=== PATIENT | female | born 1995 | race African-American/Black ===

== ENCOUNTER 2018-08-23 20:26 | Observation (INO) | payer BC ==
[2018-08-23 20:43] VITALS: BMI 25.3
--- NOTE | 2018-08-23 20:51 | PDOC ---
History of Present Illness - General Chief Complaint: Shortness of Breath Stated Complaint: Shortness of Breath Time Seen by Provider: 08/23/18 20:51 History Source: Patient Exam Limitations: No Limitations - History of Present Illness Initial Comments: 08/23/18 21:06 23 year old female with no PMH 5 months A0 presented to ED for shortness of breath x2.5 hours. She stated her SOB is worse with lying flat, and associated with palpitations and intermittent left sided chest pain. Pt stated all of her symptoms have resolved except she still feels slightly short of breath. Allergies: NKDA Past History - Past Medical History Allergies/Adverse Reactions: Allergies Allergy/AdvReac Type Severity Reaction Status Date / Time No Known Allergies Allergy Verified 08/23/18 20:41 Home Medications: Ambulatory Orders Pnv No.95/Ferrous Fum/Folic AC [ Vitamin Tablet] 1 each PO DAILY Asthma: No Cancer: No CVA: No COPD: No CHF: No - Surgical History Appendectomy: No Cardiac Surgery: No Gastric Stapling: No GI Surgery: No Lung Surgery: No - Suicide/Smoking/Psychosocial Hx Smoking History: Never smoked Have you smoked in the past 12 months: No Information on smoking cessation initiated: No Hx Alcohol Use: No Drug/Substance Use Hx: No Review of Systems - Review of Systems Able to Perform ROS?: Yes Comments:: 08/23/18 21:07 General: denied fever, chills, night sweats, generalized weakness. HEENT: denied sore throat, rhinorrhea, ear pain. Heart: admitted to palpitations, chest pain. denied syncope, diaphoresis. Respiratory: admitted to shortness of breath. denied cough, sputum production, hemoptysis. Abdomen: denied abdominal pain, nausea, vomiting, diarrhea, constipation, blood in stool. : denied dysuria, increased urinary frequency, hematuria, urinary incontinence , flank pain. Back: denied back pain. Musculoskeletal: denied joint pain, muscle pain, joint swelling. Neurological: denied headache, dizziness, numbness, tingling, weakness. Skin: denied rash, laceration, abrasion. *Physical Exam - Vital Signs Last Vital Signs Temp Pulse Resp BP Pulse Ox 98.3 F 94 H 20 119/62 100 08/23/18 20:42 08/23/18 20:42 08/23/18 20:42 08/23/18 20:42 08/23/18 20:42 - Physical Exam Comments: 08/23/18 21:08 Constitutional: Well-nourished, Well-developed, appearing stated age. HEENT: head is normocephalic, atraumatic. EOMI. PERRLA. Neck: supple. Full ROM. Heart: regular rhythm. no murmurs, rubs or gallops. Lungs: clear to auscultation bilaterally. no crackles, rhonchi or wheezing. no stridor. Abdomen: gravid. soft, nontender. normal bowel sounds. no rebound, guarding, masses. Extremities: Peripheral pulses intact. No lower extremity edema. Neurological: CN 2-12 grossly intact. Moves all four extremities. Psych: awake, alert, oriented x3. Follows commands. Answers questions appropriately. Moderate Sedation - Procedure Monitoring Vital Signs: Procedure Monitoring Vital Signs Temperature 98.3 F 08/23/18 20:42 Pulse Rate 94 H 08/23/18 20:42 Respiratory Rate 20 08/23/18 20:42 Blood Pressure 119/62 08/23/18 20:42 O2 Sat by Pulse Oximetry (%) 100 08/23/18 20:42 ED Treatment Course - LABORATORY CBC & Chemistry Diagram: 08/24/18 06:05 08/24/18 06:05 Medical Decision Making - Medical Decision Making 08/23/18 21:08 23 year old female with no PMH 5 months presented to ED for shortness of breath associated with palpitations, chest pain. Initial Vital Signs Temp Pulse Resp BP Pulse Ox 98.3 F 94 H 20 119/62 100 08/23/18 20:42 08/23/18 20:42 08/23/18 20:42 08/23/18 20:42 08/23/18 20:42 Afebrile. Borderline tachycardia. No tachypnea. Normal blood pressure for . No hypoxia on room air. I discussed the increased risk of PE in , and the need for CTA to rule out PE. Pt stated she does not want to do any test involving radiation. Pt informed of risk of with PE, pt stated she understood. o Labs ordered: CBC, CMP, troponin, BNP, Mg, Phos, TSH c Imaging ordered: none g Medications ordered: none EKG performed at 2035: rate 83, regular rhythm, normal axis, normal intervals, nonspecific ST changes. 08/23/18 22:46 CBC WBC 11.3 K/mm3 (4.0-10.0) H 08/23/18 21:27 RBC 4.00 M/mm3 (3.60-5.2) 08/23/18 21:27 Hgb 12.1 GM/dL (10.7-15.3) 08/23/18 21: Hct 34.9 % (32.4-45.2) 08/23/18 21: MCV 87.3 fl (80-96) 08/23/18 21: MCH 30.2 pg (25.7-33.7) 08/23/18: MCHC 34.6 g/dl (32.0-36.0) 08/23/18 21: RDW 14.4 % (11.6-15.6) 08/23/18 21: Plt Count 178 K/MM3 (134-434) 08/23/18 21: MPV 10.8 fl (7.5-11.1) 08/23/18 21: Absolute Neuts (auto) 8.2 K/mm3 (1.5-8.0) H 08/23/18 21: Neutrophils % 72.7 % (42.8-82.8) 08/23/18 21: Lymphocytes % 17.6 % (8-40) 08/23/18 21: Monocytes % 8.2 % (3.8-10.2) 08/23/18: Eosinophils % 1.0 % (0-4.5) 08/23/18 21: Basophils % 0.5 % (0-2.0) 08/23/18 21: Nucleated RBC % 0 % (0-0) 08/23/18 21: Mild leukocytosis with mild left shift. No anemia. Normal platelets. CMP Sodium 138 mmol/L (136-145) 08/23/18 21: Potassium 3.8 mmol/L (3.5-5.1) 08/23/18 21: Chloride 106 mmol/L (98-107) 08/23/18: Carbon Dioxide 22 mmol/L (21-32) 08/23/18 21: Anion Gap 9 MMOL/L (8-16) 08/23/18 21: BUN 8 mg/dL (7-18) 08/23/18 21: Creatinine 0.5 mg/dL (0.55-1.3) L 08/23/18 21:27 Creat Clearance w eGFR > 60 (>60) 08/23/18 21: Random Glucose 80 mg/dL (74-106) 08/23/18 21: Calcium 8.7 mg/dL (8.5-10.1) 08/23/18 21: Phosphorus 3.3 mg/dL (2.5-4.9) 08/23/18 21: Magnesium 1.6 mg/dL (1.8-2.4) L 08/23/18: Total Bilirubin 0.1 mg/dL (0.2-1) L 08/23/18 21: AST 69 U/L (15-37) H 08/23/18 21: ALT 122 U/L (13-61) H 08/23/18 21: Alkaline Phosphatase 59 U/L (45-117) 08/23/18 21: Troponin I < 0.02 ng/ml (0.00-0.05) 08/23/18 21: B-Natriuretic Peptide 22.9 pg/ml (5-125) 08/23/18 21: Total Protein 7.2 g/dl (6.4-8.2) 08/23/18 21: Albumin 3.4 g/dl (3.4-5.0) 08/23/18: TSH 2.55 uIU/ml (0.358-3.74) 08/23/18 21: No electrolyte abnormalities. No CAROL. Transaminitis. Normal troponin. Normal TSH. Normal BNP. 08/23/18 23:31 Pt having intermittent chest pain in the ED. To be admitted for observation. I spoke with the IM resident, who stated pt to be admitted to Dr. Sanchez's service. I spoke with OB mine exploration engineer Dr. Beckwith, who will consult. c US report: single ciable intrauterine gestation at approximately 18 weeks 6 days. HR 154 bpm. Urine Test Results Urine Color Straw 08/23/18 23:32 Urine Appearance Clear 08/23/18 23:32 Urine pH 6.0 (5.0-8.0) 08/23/18 23:32 Ur Specific [place] 1.008 (1.010-1.035) L 08/23/18 23:32 Urine Protein Negative (NEGATIVE) 08/23/18 23:32 Urine Glucose (UA) Negative (NEGATIVE) 08/23/18 23:32 Urine Ketones Negative (NEGATIVE) 08/23/18 23:32 Urine Blood Negative (NEGATIVE) 08/23/18 23:32 Urine Nitrite Negative (NEGATIVE) 08/23/18 23:32 Urine Bilirubin Negative (<2.0 mg/dL) 08/23/18 23:32 Ur Leukocyte Esterase Negative (NEGATIVE) 08/23/18 23:32 UA negative for UTI. *DC/Admit/Observation/Transfer Diagnosis at time of Disposition: Chest pain, Palpitations - Discharge Dispostion Disposition: HOME Condition at time of disposition: Stable Decision to Admit order: Yes - Referrals - Patient Instructions - Post Discharge Activity
--- NOTE | 2018-08-23 20:53 | PDOC ---
Attending Attestation - HPI HPI: 08/23/18 21:35 The patient is a 23 year old 5 months female A0, with no significant past medical history, who presents to the emergency department via EMS with, 2.5 hours of shortness of breath. Patient endorses her symptoms initially onsetting as shortness of breath with associated palpitations and left sided chest pain. She notes the chest pain and palpitations has been alleviated, however, the shortness of breath has only been mildly alleviated. She denies recent fevers, chills, headache or dizziness. She denies recent nausea, vomit, diarrhea or constipation. She denies recent dysuria, frequency, urgency or hematuria. Allergies: NKDA - Physicial Exam PE: 08/23/18 21:35 Agree with resident exam. <Jesus Dean - Last Filed: 08/23/18 21:35> - Resident Resident Name: Kyra Arechiga - ED Attending Attestation I have performed the following: I have examined & evaluated the patient, The case was reviewed & discussed with the resident, I agree w/resident's findings & plan - Medical Decision Making 08/23/18 22:26 23-year-old gravid female with an episode of left-sided chest pressure with accompanying palpitations Patient has refused CTA of the chest to rule out pulmonary embolism, risks associated with delayed diagnosis were discussed including of herself and fetus EKG shows a sinus rhythm at 83 bpm with no acute ST elevations Due to chest pain and accompanying shortness of breath plan is to hold patient for observation and serial enzymes Bedside ultrasound to confirm viability <Carolina Peterson - Last Filed: 08/23/18 22:27> Attestations - Attestations 08/23/18 21:35 Documentation prepared by Jesus Dean, acting as diagnostic medical sonographer for Carolina Peterson DO. <Jesus Dean - Last Filed: 08/23/18 21:35>
[2018-08-23 21:26] VITALS: TEMP 98.1
[2018-08-23 21:42] LABS: BASO % 0.5 % (0-2.0); HEMATOCRIT 34.9 % (32.4-45.2); HEMOGLOBIN 12.1 GM/dL (10.7-15.3); LYMPH % 17.6 % (8-40); MCH 30.2 pg (25.7-33.7); MCHC 34.6 g/dl (32.0-36.0); MEAN CELL VOLUME 87.3 fl (80-96); MEAN PLT VOLUME 10.8 fl (7.5-11.1); MONO % 8.2 % (3.8-10.2); NEUT % 72.7 % (42.8-82.8); PLATELET COUNT 178 K/MM3 (134-434); RDW 14.4 % (11.6-15.6); WHITE BLOOD COUNT 11.3 K/mm3 (4.0-10.0)
[2018-08-23 22:23] LABS: ALBUMIN 3.4 g/dl (3.4-5.0); ALK PHOS 59 U/L (45-117); ANION GAP 9 MMOL/L (8-16); BILIRUBIN,TOTAL 0.1 mg/dL (0.2-1); BLOOD UREA NITROGEN 8 mg/dL (7-18); CALCIUM 8.7 mg/dL (8.5-10.1); CHLORIDE 106 mmol/L (98-107); CO2 22 mmol/L (21-32); CREATININE 0.5 mg/dL (0.55-1.3); GLUCOSE,RANDOM 80 mg/dL (74-106); N-TERMINAL BNP 22.9 pg/ml (5-125); POTASSIUM 3.8 mmol/L (3.5-5.1); SGOT/AST 69 U/L (15-37); SGPT/ALT 122 U/L (13-61); SODIUM 138 mmol/L (136-145); TOT PROT 7.2 g/dl (6.4-8.2)
[2018-08-23 22:30] LABS: MAGNESIUM 1.6 mg/dL (1.8-2.4); PHOSPHOROUS 3.3 mg/dL (2.5-4.9)
[2018-08-23 23:39] LABS: URINE APPEARANCE CLEAR; URINE BILIRUBIN NEGATIVE (<2.0 mg/dL); URINE COLOR STRAW; URINE GLUCOSE (UA) NEGATIVE (NEGATIVE); URINE KETONE NEGATIVE (NEGATIVE); URINE LEUK ESTERASE NEGATIVE (NEGATIVE); URINE NITRITE NEGATIVE (NEGATIVE); URINE PROTEIN NEGATIVE (NEGATIVE); URINE UROBILINOGEN NEGATIVE mg/dL (0.2-1.0)
--- NOTE | 2018-08-23 23:57 | PN ---
Teaching Attending Note Name of Resident: Leslie Gandhi ATTENDING PHYSICIAN STATEMENT I saw and evaluated the patient. I reviewed the resident's note and discussed the case with the resident. I agree with the resident's findings and plan as documented. SUBJECTIVE: Patient is a 23 year old woman who is 5 months A0, with no significant PMH who presents to the ER with 2.5 hours of shortness of breath. Patient says her symptoms initially started as shortness of breath with associated palpitations and left sided chest pain. She woke up around 5pm this evening with SOB, then ate dinner and then the SOB got worse sob and dyspnea. She reports that she usually gets short of breath especially since the start of her , but this episode was particularly worse as she was unable to speak and had a hard time breathing as well. While these symptoms started, she also complained of non-radiating L-sided chest pressure and palpitations that she had never experienced before. At the time i saw her in the ER, she was painfree and didnt have SOB. 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 Does not smoke or use any illicit drugs and is not exposed to any second hand smoke. No recent travels and no recent exposure to any person who is ill. She notes that the chest pain and palpitations have improved, however the shortness of breath has only been mildly alleviated. She denies recent fevers, chills, headache or dizziness. She denies recent nausea, vomit, diarrhea or constipation. She denies recent dysuria , frequency, urgency or hematuria. OBJECTIVE: Alert and in no acute respiratory distress Vital Signs Period Temp Pulse Resp BP Sys/Hassan Pulse Ox Last 24 Hr 98.1 F-98.3 F 68-94 18-20 112-119/58-64 97-100 HEENT: No Jaundice, eye redness or discharge, PERRLA, EOMI. Normocephalic, atraumatic. External ears are normal and hearing is grossly intact. No nasal discharge. Neck: Supple, nontender. No palpable adenopathy or thyromegaly. No JVD Chest: Good effort. Diminished breath sounds in both lung bases. Clear to percussion. Heart: Regular. No S3, rub or murmur Abdomen: Not distended, soft, nontender and no HSM. No rebound or guarding. Normoactive bowel sounds. Ext: Peripheral pulses intact. No leg edema. Skin: Warm and dry. No petechiae, rash or ecchymosis. Neuro: Alert. Oriented x3. CN 2-12 grossly intact. Sensation grossly intact in all four extremities and DTR are symmetric. Abnormal Lab Results 08/23/18 08/23/18 08/23/18 21:27 21:27 21:27 WBC 11.3 H Absolute Neuts (auto) 8.2 H Creatinine 0.5 L Magnesium 1.6 L Total Bilirubin 0.1 L AST 69 H ALT 122 H Ur Specific [place] 08/23/18 23:32 WBC Absolute Neuts (auto) Creatinine Magnesium Total Bilirubin AST ALT Ur Specific [place] 1.008 L ASSESSMENT AND PLAN: 1. Chest pain - EKG shows NSR with no significant ST-T wave changes. Larose concerns are pulmonary embolism, ACS or a chest infection. Patient refused a CTA to rule out PE and also does not want a chest x-ray to rule out pneumonia. The implications of her decision were explained to her. We will get an ABG as well as d-dimer and Urinalysis. Monitor her on telemetry and rule out ACS. She got the Flu vaccine last month. Consult cardiology. Etiology of elevated LFTs is unclear. Will trend LFTs, get upper abdominal sonogram, hepatitis serology, Flu swab, repeat WBC and replenish low serum Mg. 2. DVT prophylaxis - Heparin 5000u sq tid. 3. Advance directives - Full code
--- NOTE | 2018-08-24 00:18 | HP ---
CHIEF COMPLAINT: shortness of breath and chest pressure PCP: [facility]- Say she receives regular care by avionics repair technician at [facility] HISTORY OF PRESENT ILLNESS: 23F G3 (0020) 18 weeks and 6 days w/ pmhx of anemia presents with acute onset shortness of breath and chest pressure. Pt states she had woken up around 5pm this evening, ate dinner, sat down and soon developed worsening sob and dyspnea. She reports that she usually gets short of breath especially since the start of her , but this episode was particularly worse as she was unable to speak and had a hard time breathing as well. While these symptoms started, she also complained of non-radiating L-sided chest pressure and palpitations that she had never experienced before. As a result, she called EMS to have her brought to the hospital. Pt states her palpitations would last minutes at a time, but was on and off. They would also persistent despite laying down. Prior to these symptoms, she does not report doing strenuous activity. Additionally, she denies any recent travel, hx of heart or lung disease, or family hx of heart or lung disease. She states that she recently had an argument with her last night that did cause her some emotional stress where she was crying and would wake up in the middle of the night. Pt denies fever/chills, headaches/dizziness, abd pain, dysuria, hematuria, blood in stool, diarrhea. She does admit to some constipation and nausea. She states she receives her care by a avionics repair technician who is associated with [facility]. ER course was notable for: (1) Initial HR 94, WBC 11.3, Mg 1.6, Trop neg x1 (2) OB U/S: Single viable IU gestation approximately 18 weeks, 6 days. 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 She has routine care. Family History: HTN, DM Allergies No Known Allergies Allergy (Verified 08/23/18 20:41) HOME MEDICATIONS: Vitamins Iron supplements (unknown dose) REVIEW OF SYSTEMS CONSTITUTIONAL: Denies fever, chills, diaphoresis, generalized weakness, malaise , loss of appetite, weight change HEENT: Denies rhinorrhea, nasal congestion, throat pain, throat swelling, difficulty swallowing, mouth swelling CARDIOVASCULAR: Admits to chest pressure and palpitations; Denies irregular heart rate, lightheadedness, peripheral edema RESPIRATORY: Admits to sob, dyspnea; Denies cough, orthopnea, wheezing, stridor , hemoptysis GASTROINTESTINAL: Admits to nausea and constipation; Denies abdominal pain, abdominal distension, vomiting, diarrhea, melena, hematochezia GENITOURINARY: Denies dysuria, frequency, urgency, hesitancy, hematuria, flank pain, genital pain MUSCULOSKELETAL: Denies myalgia, arthralgia, joint swelling, back pain, neck pain NEUROLOGIC: Denies headache, focal weakness or paresthesias, dizziness, unsteady gait, seizure, mental status changes PHYSICAL EXAMINATION Vital Signs - 24 hr 08/23/18 08/23/18 08/23/18 20:42 21:00 21:50 Temperature 98.3 F 98.1 F Pulse Rate 94 H Pulse Rate [ 68 78 Apical] Respiratory 20 20 18 Rate Blood Pressure 119/62 Blood Pressure 112/64 117/58 L [Left Arm] O2 Sat by Pulse 100 97 100 Oximetry (%) GENERAL: AAOx3. Comfortable, NAD. Pleasant and cooperative. HEENT: No signs of head trauma. EOMI. EDEN. Moist mucus membranes. Facial symmetry noted. NECK: Normal range of motion, supple without lymphadenopathy, JVD, or masses. LUNGS: Decreased breath sounds b/l bases. No use of accessory muscles noted. Speaks in complete sentences. HEART: RRR. Normal S1, S2. No murmurs noted. ABDOMEN: Gravid. Soft, NT/ND. MUSCULOSKELETAL: Normal range of motion at all joints. No bony deformities or tenderness. No CVA tenderness. UPPER EXTREMITIES: 2+ radial pulses, warm, well-perfused. No cyanosis. No clubbing. No peripheral edema. LOWER EXTREMITIES: 2+ dorsalis pulses, warm, well-perfused. No calf tenderness. No peripheral edema. NEUROLOGICAL: Normal speech. responds to commands. 5/5 muscle strength in u/l b/ l extremities. Laboratory Results - last 24 hr 08/23/18 08/23/18 08/23/18 21:27 21:27 21:27 WBC 11.3 H RBC 4.00 Hgb 12.1 Hct 34.9 MCV 87.3 MCH 30.2 MCHC 34.6 RDW 14.4 Plt Count 178 MPV 10.8 Absolute Neuts (auto) 8.2 H Neutrophils % 72.7 Lymphocytes % 17.6 Monocytes % 8.2 Eosinophils % 1.0 Basophils % 0.5 Nucleated RBC % 0 Sodium 138 Potassium 3.8 Chloride 106 Carbon Dioxide 22 Anion Gap 9 BUN 8 Creatinine 0.5 L Creat Clearance w eGFR > 60 Random Glucose 80 Calcium 8.7 Phosphorus 3.3 Magnesium 1.6 L Total Bilirubin 0.1 L AST 69 H ALT 122 H Alkaline Phosphatase 59 Troponin I < 0.02 B-Natriuretic Peptide 22.9 Total Protein 7.2 Albumin 3.4 TSH 2.55 Urine Color Urine Appearance Urine pH Ur Specific [place] Urine Protein Urine Glucose (UA) Urine Ketones Urine Blood Urine Nitrite Urine Bilirubin Urine Urobilinogen Ur Leukocyte Esterase 08/23/18 23:32 WBC RBC Hgb Hct MCV MCH MCHC RDW Plt Count MPV Absolute Neuts (auto) Neutrophils % Lymphocytes % Monocytes % Eosinophils % Basophils % Nucleated RBC % Sodium Potassium Chloride Carbon Dioxide Anion Gap BUN Creatinine Creat Clearance w eGFR Random Glucose Calcium Phosphorus Magnesium Total Bilirubin AST ALT Alkaline Phosphatase Troponin I B-Natriuretic Peptide Total Protein Albumin TSH Urine Color Straw Urine Appearance Clear Urine pH 6.0 Ur Specific [place] 1.008 L Urine Protein Negative Urine Glucose (UA) Negative Urine Ketones Negative Urine Blood Negative Urine Nitrite Negative Urine Bilirubin Negative Urine Urobilinogen Negative Ur Leukocyte Esterase Negative CONSULT: OBGYN- Dr. Beckwith IMAGING: * Obstetric U/S: Single viable IU gestation at approximately 18 weeks, 6 days. ASSESSMENT/PLAN: 23F G3 (0020) 18 weeks and 6 days w/ pmhx of anemia presents with acute onset shortness of breath and chest pressure. #Chest pain; r/o ACS vs. musculoskeletal etiology -EKG showed NSR, with no ST-T changes. Pt refused CTA and CXR due to , so unable to r/o PE. Will obtain d-Dimer and ABG for baseline. -Monitor on tele and rule out ACS -Trop neg x1, repeat trop -Mag/Phos -Echo ordered -Duplex of BLE ordered #; ~18 weeks, 6 days -OB u/s noted above; unremarkable. -OBGYN consulted (Dr. Beckwith) #Prophylaxis -Heparin SQ 5000 TID #FEN -PO hydration -recheck lytes in AM -regular diet dispo -admit to tele obs Visit type - Emergency Visit Emergency Visit: Yes ED Registration Date: 08/23/18 Care time: The patient presented to the Emergency Department on the above date and was hospitalized for further evaluation of their emergent condition. - New Patient This patient is new to me today: Yes Date on this admission: 08/24/18 - Critical Care Critical Care patient: No
[2018-08-24 01:14] LABS: ALLENS TEST POSITIVE; ARTERIAL BLOOD GAS pH 7.42 (7.35-7.45)
[2018-08-24 06:26] LABS: BASO % 0.1 % (0-2.0); HEMATOCRIT 30.6 % (32.4-45.2); HEMOGLOBIN 10.8 GM/dL (10.7-15.3); LYMPH % 18.4 % (8-40); MCH 29.9 pg (25.7-33.7); MCHC 35.3 g/dl (32.0-36.0); MEAN CELL VOLUME 84.7 fl (80-96); MEAN PLT VOLUME 10.6 fl (7.5-11.1); MONO % 7.5 % (3.8-10.2); PLATELET COUNT 171 K/MM3 (134-434); RBC 3.61 M/mm3 (3.60-5.2); RDW 14.5 % (11.6-15.6); WHITE BLOOD COUNT 11.9 K/mm3 (4.0-10.0)
[2018-08-24] MEDS ORDERED: HEPARIN NA (PORCINE) 5,000 UNITS/ML 1ML VIAL SQ SCH (06:30)
[2018-08-24] MEDS ORDERED: HEPARIN NA (PORCINE) 5,000 UNITS/ML 1ML VIAL ONE (06:37)
[2018-08-24 07:07] LABS: ALBUMIN 3.1 g/dl (3.4-5.0); ALK PHOS 50 U/L (45-117); ANION GAP 9 MMOL/L (8-16); BILIRUBIN,TOTAL 0.4 mg/dL (0.2-1); BLOOD UREA NITROGEN 7 mg/dL (7-18); CHLORIDE 107 mmol/L (98-107); CO2 22 mmol/L (21-32); CREATININE 0.5 mg/dL (0.55-1.3); GLUCOSE,RANDOM 63 mg/dL (74-106); MAGNESIUM 1.8 mg/dL (1.8-2.4); PHOSPHOROUS 3.8 mg/dL (2.5-4.9); POTASSIUM 3.8 mmol/L (3.5-5.1); SGOT/AST 55 U/L (15-37); SGPT/ALT 106 U/L (13-61); SODIUM 138 mmol/L (136-145); TOT PROT 6.6 g/dl (6.4-8.2)
[2018-08-24] MEDS ORDERED: SODIUM CHLORIDE 500 ML IV STA (07:13)
[2018-08-24] MEDS ORDERED: SODIUM CHLORIDE 1,000 ML IV SCH (07:15)
--- NOTE | 2018-08-24 11:53 | EKG ---
Test Reason : Blood Pressure : / mmHG Vent. Rate : 083 BPM Atrial Rate : 083 BPM P-R Int : 114 ms QRS Dur : 074 ms QT Int : 372 ms P-R-T Axes : 055 015 019 degrees QTc Int : 437 ms NORMAL SINUS RHYTHM WITH SINUS ARRHYTHMIA NORMAL ECG NO PREVIOUS ECGS AVAILABLE Confirmed by MD ABBIE, ROCKY ([id number]) on 08/24/2018 11:53:13 AM Referred By: Confirmed By:ROCKY LEIVA MD
--- NOTE | 2018-08-24 13:33 | ECHO ---
Name: RICO SHETH Exam:Adult Echocardiogram Study Date: 08/24/2018 08:12 AM Age: 23 yrs Reason For Study: R/O ACS Height: 63 in Weight: 143 lb BSA: 1.7 m2 MMode/2D Measurements & Calculations IVSd: 0.70 cm Ao root diam: 2.1 cm LVIDd: 4.9 cm LA dimension: 3.6 cm LVIDs: 3.0 cm LVPWd: 0.87 cm EDV(Teich): 112.2 ml LAV (MOD-bp): 31.0 ml ESV(Teich): 33.8 ml Doppler Measurements & Calculations MV E max gina: 99.9 cm/sec MV A max gina: 40.3 cm/sec MV dec slope: 515.3 cm/sec2 MV E/A: 2.5 TR max gina: 180.5 cm/sec Med Peak E' Gina: 12.9 cm/sec TR max P.0 mmHg Med E/e': 7.7 Lat Peak E' Gina: 14.9 cm/sec Lat E/e': 6.7 PI Vmax: 88.9 cm/sec Procedure A two-dimensional transthoracic echocardiogram with color flow and Doppler was performed. The patient was in normal sinus rhythm during the exam. Left Ventricle The left ventricular size, thickness and function are normal. Ejection Fraction = 70%. The transmitra l spectral Doppler flow pattern is normal for age. Right Ventricle The right ventricle is normal in size and function. Atria Normal left and right atrial size and function. Mitral Valve The mitral valve is grossly normal. Tricuspid Valve The tricuspid valve is not well visualized, but is grossly normal. There is trace tricuspid regurgita tion. There was insufficient TR detected to calculate RV systolic pressure. Aortic Valve The aortic valve is normal in structure and function. No hemodynamically significant valvular aortic stenosis. Pulmonic Valve The pulmonic valve is not well seen, but is grossly normal. Trace pulmonic valvular regurgitation. Great Vessels The aortic root is normal size. Pericardium/Pleura There is no pericardial effusion. Interpretation Summary The left ventricular size, thickness and function are normal Normal left and right atrial size and function. There is trace tricuspid regurgitation. No hemodynamically significant valvular aortic stenosis. The aortic valve is normal in structure and function. There is no pericardial effusion. There was insufficient TR detected to calculate RV systolic pressure. MD José Miguel Gallardo 08/24/2018 01:33 PM
--- NOTE | 2018-08-24 14:54 | DS ---
Physical Exam: SUBJECTIVE: Patient seen this morning and reports she is feeling better then yesterday. She reports she is a little dizzy on standing. OBJECTIVE: Vital Signs Temperature 98.1 F 08/24/18 15:11 Pulse Rate 72 08/24/18 15:11 Respiratory Rate 16 08/24/18 15:11 Blood Pressure 107/60 08/24/18 15:11 O2 Sat by Pulse Oximetry (%) 99 08/24/18 15:11 PHYSICAL EXAM GENERAL: The patient is awake, alert, and fully oriented, in no acute distress. HEAD: Normal with no signs of trauma. EYES: PERRL, extraocular movements intact LUNGS: Breath sounds equal, clear to auscultation bilaterally, HEART: Regular rate and rhythm, S1, S2 without murmur, rub or gallop. ABDOMEN: Soft, gravid uterus EXTREMITIES: 2+ pulses, warm, well-perfused, no edema. SKIN: Warm, dry, normal turgor, no rashes or lesions noted. LABS CBC, BMP 08/24/18 06:05 08/24/18 06:05 HOSPITAL COURSE: Date of Admission:08/23/18 Patient was admitted for palpitations. Patient ekg without abnormalities, normal sinus rhythm. Echo and doppler negative. Patient asymptomatic and stable for discharge. Patient 18 weeks , follows up with OBGYN. Echo: left ventricular size, thickness, and function are normal, normal left and right atrial size and function, trace tricuspid regurgitation, no hemodynamically significant aortic stenosis Doppler: no DVT OB US: single viable intrauterine gestation 18 weeks 6 days Date of Discharge: 08/24/18 Minutes to complete discharge: 42 Discharge Summary Reason For Visit: PALPITATIONS,CHEST PAIN Condition: Stable - Instructions Diet, Activity, Other Instructions: You were admitted to the hospital for palpitations and chest pressure. We monitored your heart and had imaging done. We have found that your heart is functioning properly and you had no clots in your leg. Please make an appointment to follow up with your primary care physician within one week. If you do not have a primary care physician please feel free to follow -up with the [facility] at [address] Vega Please continue to follow up with your OBGYN doctor to monitor your . Please return to the Emergency Department if you have any chest pain, chest pressure, palpitations, shortness of breath, or headache. Referrals: Carson Monge MD [Staff Physician] - Disposition: HOME - Home Medications Comprehensive Discharge Medication List: Ambulatory Orders Pnv No.95/Ferrous Fum/Folic AC [ Vitamin Tablet] 1 each PO DAILY This patient is new to me today: Yes Date on this admission: 08/25/18 Emergency Visit: Yes ED Registration Date: 08/23/18 Care time: The patient presented to the Emergency Department on the above date and was hospitalized for further evaluation of their emergent condition. Critical Care patient: No - Discharge Referral Referred to [facility] Med P.C.: No
[2018-08-24 15:11] VITALS: BP 107/60; PULSE 72
--- NOTE | 2018-08-24 15:50 | PN ---
Teaching Attending Note Name of Resident: Zoe Vega ATTENDING PHYSICIAN STATEMENT I saw and evaluated the patient. I reviewed the resident's note and discussed the case with the resident. I agree with the resident's findings and plan as documented. SUBJECTIVE:states CP and SOB has resolved. states symptoms came on suddenly and resolved shortly after arrival to the ER. states prior to getting she would work out and would often get SOB during exercise. never had calf pain. no cardiac workup in the past. no family hx of heart disease or clot denies miscarriages in the past OBJECTIVE: Last Vital Signs Temp Pulse Resp BP Pulse Ox 98.1 F 72 16 107/60 99 08/24/18 15:11 08/24/18 15:11 08/24/18 15:11 08/24/18 15:11 08/24/18 15:11 General NAD CV S1 S2 RRR no murmur/rub/gallop Lungs CTA B/L no wheezing/rales/rhonchi Extremities no pedal edema, no calf tenderness neg [place] sign ASSESSMENT AND PLAN: 23yo F with no PMH presented while 18.6weeks with CP and sob 1. SOB- likely due to state. low suspicion for PE, only risk factor is current . refused imaging of her chest. agreed to echo and doppler of the extremities. explained that these test do not exclude that she does not have a clot and that she could still possibly have one. verbalized understanding. cardiac markers neg x2. stressed importance of returning if CP or SOB return 2. 18weeks gestation- ob consulted. on prenatals 3. d/c pending results of above mentioned studies
== END 2018-08-24 15:12 | disposition home or self-care (01) ==
LOC: JER 20:26 → JERBED 23:19
PROVIDERS: ADMIT Internal Medicine; ATTEND Internal Medicine
PROC: 3E013GC Introduction of Other Therapeutic Substance into Subcutaneous Tissue, Percutaneous Approach (ICD-10-PCS; principal; 2018-08-23)
DX: O26.892 Other specified pregnancy related conditions, second trimester (principal); Z3A.18 18 weeks gestation of pregnancy; R07.9 Chest pain, unspecified; R00.2 Palpitations; D72.829 Elevated white blood cell count, unspecified; R94.5 Abnormal results of liver function studies
CPT/HCPCS: 36415; 36600; 76801-TC; 80053; 81003; 82550; 82803; 83735; 83880; 84100; 84443; 84484; 85025; 85379; 87086; 93005; 93010; 93306-TC; 93970-TC; 99283-25; G0378; J1644

== ENCOUNTER 2020-09-24 17:46 | Emergency (ER) | payer BC, OTHER ==
[2020-09-24 18:07] VITALS: BP 113/71; PULSE 71; TEMP 98.4; BMI 27.4
[2020-09-24] MEDS ORDERED: METOCLOPRAMIDE HCL INJECTION 10 MG/2 ML VIAL IVPB ONE (18:49)
[2020-09-24] MEDS ORDERED: SODIUM CHLORIDE 1,000 ML IV STA (18:49)
[2020-09-24] MEDS ORDERED: METOCLOPRAMIDE HCL INJECTION 10 MG/2 ML VIAL ONE (18:58)
[2020-09-24 19:01] LABS: BASO % 0.6 % (0-2.0); HEMATOCRIT 36.9 % (32.4-45.2); HEMOGLOBIN 12.3 GM/dL (10.7-15.3); LYMPH % 35.1 % (8-40); MCH 28.3 pg (25.7-33.7); MCHC 33.3 g/dl (32.0-36.0); MEAN CELL VOLUME 84.9 fl (80-96); MEAN PLT VOLUME 10.9 fl (7.5-11.1); MONO % 7.5 % (3.8-10.2); NEUT % 55.8 % (42.8-82.8); PLATELET COUNT 194 K/MM3 (134-434); RBC 4.35 M/mm3 (3.60-5.2); RDW 13.6 % (11.6-15.6); WHITE BLOOD COUNT 9.3 K/mm3 (4.0-10.0)
[2020-09-24 19:31] LABS: BLOOD UREA NITROGEN 15.7 mg/dL (7-18); CALCIUM 9.3 mg/dL (8.5-10.1)
[2020-09-24 19:34] LABS: CREATININE 0.9 mg/dL (0.55-1.3)
== END 2020-09-24 19:55 | disposition left against medical advice (07) ==
LOC: JERFT 17:46 → JER 17:46
PROC: 3E033GC Introduction of Other Therapeutic Substance into Peripheral Vein, Percutaneous Approach (ICD-10-PCS; principal; 2020-09-24)
PROC: 3E0337Z Introduction of Electrolytic and Water Balance Substance into Peripheral Vein, Percutaneous Approach (ICD-10-PCS; 2020-09-24)
DX: R51.9 Headache, unspecified (principal)
CPT/HCPCS: 36415; 80048; 84703; 85025; 99284-25

== ENCOUNTER 2022-02-28 21:16 | Emergency (ER) | payer OTHER, BC ==
[2022-02-28 21:23] VITALS: BP 1/0; PULSE 76; RESP 18; BMI 26.9
[2022-02-28] MEDS ORDERED: CYCLOBENZAPRINE HCL 10 MG TABLET (FP) PO ONE (22:39)
[2022-02-28] MEDS ORDERED: IBUPROFEN 600 MG TABLET (FP) PO ONE ×3 (22:39→22:42)
[2022-02-28] MEDS ORDERED: CYCLOBENZAPRINE HCL 10 MG TABLET (FP) ONE (22:42)
== END 2022-02-28 23:01 | disposition home or self-care (01) ==
LOC: JERFT 21:16
DX: R07.89 Other chest pain (principal); V47.5XXA Car driver injured in collision with fixed or stationary object in traffic accident, initial encounter
CPT/HCPCS: 71046-TC-FY; 99283-25

== ENCOUNTER 2022-04-13 08:08 | Emergency (ER) | payer BC, OTHER ==
[2022-04-13 08:25] VITALS: BP 127/77; PULSE 97; RESP 20; TEMP 98.4; BMI 26.5
== END 2022-04-13 09:41 | disposition home or self-care (01) ==
LOC: JER 08:08
DX: J06.9 Acute upper respiratory infection, unspecified (principal)
CPT/HCPCS: 0241U-QW; 99283-25